=== PATIENT | female | born 1955 | race Caucasian/White ===

== ENCOUNTER 2024-02-09 09:00 | Outpatient (CLI) | payer MEDICARE ==
[2024-02-09 11:03] LABS: BASOPHILS % (AUTO) 0.3 % (0-1); EOSINOPHILS # (AUTO) 0.1 X10'3 (0-0.9); EOSINOPHILS % (AUTO) 1.5 % (0-6); LYMPHOCYTES # (AUTO) 1.4 X10'3 (1.1-4.8); LYMPHOCYTES % (AUTO) 18.5 % (21-51); MEAN CORPUSCULAR HGB CONC 33.2 g/dL (33.0-36.5); MEAN CORPUSCULAR VOLUME 90.2 FL (78-98); MEAN PLATELET VOLUME 7.6 FL (7.4-10.4); MONOCYTES # (AUTO) 0.4 X10'3 (0-0.9); MONOCYTES % (AUTO) 5.4 % (2-12); NEUTROPHILS # (AUTO) 5.5 X10'3 (1.8-7.7); NEUTROPHILS % (AUTO) 74.3 % (42-75); PRE OP HEMATOCRIT 38.1 % (35.0-45.0); PRE OP HEMOGLOBIN 12.6 g/dL (12.0-16.0); PRE OP PLATELET COUNT 299 X10'3 (140-440); PRE OP WHITE BLOOD COUNT 7.3 10'3 (4.8-10.8); RED BLOOD COUNT 4.22 X10'6 (4.20-5.60); RED CELL DISTRIBUTION WIDTH 14.2 % (11.5-14.5)
[2024-02-09 11:13] LABS: ALBUMIN 3.3 G/DL (3.4-5.0); ALBUMIN/GLOBULIN RATIO 0.8 (1.1-1.5); ALKALINE PHOSPHATASE 59 IU/L (46-116); BLOOD UREA NITROGEN 16 MG/DL (7-18); BUN/CREATININE RATIO 20.3 (10.0-20.0); CALCIUM 9.1 MG/DL (8.5-10.1); CHLORIDE 105 MMOL/L (99-107); CREATININE 0.79 MG/DL (0.40-0.90); PRE OP ALT 16 U/L (30-65); PRE OP ANION GAP 6 (8-16); PRE OP AST 12 U/L (10-37); PRE OP BILIRUB, TOTAL 0.3 MG/DL (0.0-1.0); PRE OP GLUCOSE 97 MG/DL (70-104); PRE OP POTASSIUM 3.8 MMOL/L (3.4-5.1); PRE OP SODIUM 141 MMOL/L (135-145); TOTAL CARBON DIOXIDE 30.4 MMOL/L (24-32); TOTAL PROTEIN 7.4 G/DL (6.4-8.2); eGFR 72 ML/MIN
[2024-02-09] MEDS ORDERED: CALC-723 PO (13:29)
[2024-02-09] MEDS ORDERED: VITAMIN D3 (13:29)
[2024-02-09] MEDS ORDERED: MONT-40 PO (13:29)
[2024-02-09] MEDS ORDERED: TAMO20TA4 PO (13:29)
[2024-02-09] MEDS ORDERED: CETI10CA19 PO (13:29)
[2024-02-09] MEDS ORDERED: PANT40TA54 PO (13:29)
[2024-02-09] MEDS ORDERED: FIBER GUMMIES (13:29)
[2024-02-09] MEDS ORDERED: ROSU40TA22 PO (13:29)
== END 2024-02-09 23:00 | disposition home or self-care (01) ==
LOC: LAB 09:00 → EDSTATUS 02-17 08:30
PROVIDERS: ATTEND Surgery
DX: K44.9 Diaphragmatic hernia without obstruction or gangrene (principal); I51.7 Cardiomegaly
CPT/HCPCS: 36415; 80053; 85025; 93005

== ENCOUNTER 2025-05-26 05:20 | Day surgery (SDC) | payer MEDICARE ==
[2025-05-19 11:25] LABS: MEAN PLATELET VOLUME 7.5 FL (7.4-10.4); RED CELL DISTRIBUTION WIDTH 15.0 % (11.5-14.5)
[2025-05-19 11:43] LABS: CREATININE 1.04 MG/DL (0.40-0.90); TOTAL CARBON DIOXIDE 29.8 MMOL/L (24-32); eGFR 52 ML/MIN
[2025-05-26] VITALS (18 sets, daily range): BP systolic 129–155; BP diastolic 72–84; PULSE 67–77; RESP 11–21; TEMP 98.3; O2SAT 94–100
[~2025-05-26] VITALS: Ht 157.5 cm; Wt 64.7 kg
[~2025-05-26 05:20] MED LIST: CALC-1205 PO; CETI10CA19 PO; CHOL500061 PO; FIBER GUMMIES PO; MAGN250C PO; MONT-40 PO; PANT40TA54 PO; ROSU40TA89 PO; TAMO20TA4 PO
[2025-05-26] MEDS: ceFAZolin 2gm/dext,iso 50mL 50 ML IV ONE (05:41)
[2025-05-26] MEDS: ringers solution, lacted 1,000 ML IV SCH (06:00)
[2025-05-26] MEDS ORDERED: LIDOcaine 1% (10mg/ml)w/preservative inj. 20ml MDV ONE (06:46)
[2025-05-26] MEDS ORDERED: BUPIVAcaine 2.5mg/ml inj 50ml vial (contains preservative) ONE (06:47)
[2025-05-26] MEDS ORDERED: fentaNYL /PF 50mcg/ml 5ml ampule ONE (07:20)
[2025-05-26] MEDS ORDERED: dexamethasone sod phosphate 4mg/ml inj. ONE (07:21)
[2025-05-26] MEDS ORDERED: albumin (Human) 5% 250ml 250 ML IV ONE (07:21)
[2025-05-26] MEDS ORDERED: acetaminophen 1,000mg/100ml IV 100 ML IV ONE (07:21)
[2025-05-26] MEDS ORDERED: ondansetron/PF 4mg/2ml inj ONE (07:21)
[2025-05-26] MEDS ORDERED: rocuronium 10mg/ml inj IV ONE ×3 (07:21→08:36)
[2025-05-26] MEDS ORDERED: propofol inj 20 ML IV ONE (07:21)
[2025-05-26] MEDS ORDERED: LIDOcaine 1%/PF 5ML 10 MG/ML VIAL ONE (07:21)
--- NOTE | 2025-05-26 07:41 | HISTORY AND PHYSICAL ---
History & Physical Providers to CC CC: ARBEN HALL MD ~ History of Present Illness Reason for Admit\Complaint: Hiatal hernia History of Present Illness This is an interval history and physical exam Ms. San is here today for elective repair of her type 1 paraesophageal hernia (sliding hiatal). She has known Bocanegra's esophagus and reflux symptoms She was seen in the office greater than 30 days ago. She denies any change in her past medical history (please see previous history and physical exam for all pertinent details) She is scheduled for robotic assisted, laparoscopic paraesophageal hernia repair with mesh Allergies: Coded Allergies: No Known Allergies (Unverified , 02/09/24) Home Medications Home Medications Active Reported Magnesium (Magnesium Citrate and Oxide) 250 Mg Capsule 1 Cap PO DAILY Vitamin D3 (Cholecalciferol (Vitamin D3)) 125 Mcg (5000 Unit) Tab.rapdis 1 Tab PO DAILY 30 Days Calcium 600 + Vit D3 Tablet (Calcium Carbonate/Vitamin D3) 600 Mg Calcium-10 Mcg (400 Unit) Tablet 2 Tab PO DAILY 30 Days [Fiber Gummies] 3 Unit PO DAILY Allergy Relief (Cetirizine HCl) 10 Mg Capsule 1 Cap PO DAILY 30 Days Rosuvastatin Calcium 40 Mg Tablet 1 Tab PO QPM Pantoprazole Sodium 40 Mg Tablet.dr 1 Tab PO QAM Montelukast Sodium 10 Mg Tablet 1 Tab PO HS Tamoxifen Citrate 20 Mg Tablet 1 Tab PO DAILY @ NOON Exam Vitals: Vital Signs Date Time Temp Pulse Resp B/P (MAP) Pulse Ox O2 Delivery O2 Flow Rate FiO2 05/26/25 05:36 16 99 Room Air 05/26/25 05:36 71 05/26/25 05:36 98.3 155/77 (103) General: 70-year-old female in no acute distress Chest: Lungs clear to auscultation bilaterally Cardiovascular: Regular rate and rhythm without murmur Abdomen: Soft and nondistended Problems: (1) Paraesophageal hernia Status: Chronic Assessment & Plan: Bocanegra's esophagus Intractable reflux symptoms The risks, benefits, and alternatives to a robotic assisted, laparoscopic paraesophageal hernia repair with mesh were discussed with the patient and her spouse. Risks include, but are not limited to, bleeding, infection, injury to intra-abdominal structures, hernia recurrence, chronic postoperative pain and the need for revision or additional surgery. Patient verbalized understanding and wishes to proceed with surgery. We will do so today as scheduled ARBEN HALL MD May 26, 2025 07:41
[2025-05-26] MEDS ORDERED: labetalol 20mg/4ml (5mg/ml) syringe IV ONE (08:12)
[2025-05-26] MEDS: BUPIVAcaine/PF 2.5 mg/ml (0.25%) 30ml vial IJ ONE (08:59)
[2025-05-26] MEDS ORDERED: ePHEDrine 50MG/ML INJ. ONE (09:27)
[2025-05-26] MEDS ORDERED: normal saline 1000ml 1,000 ML IV SCH (10:00)
[2025-05-26] MEDS ORDERED: potassium CL 20mEq in D5-1/2NS 1,000 ML IV SCH (10:00)
[2025-05-26] MEDS ORDERED: ondansetron/PF 4mg/2ml inj IV PRN ×2 (10:00→10:30)
[2025-05-26] MEDS ORDERED: morphine 4 MG/ML inj SYRINge IV PRN (10:30)
[2025-05-26] MEDS ORDERED: fentaNYL/PF 50MCG/1 ML 2ML syringe IV PRN ×2 (10:30)
[2025-05-26] MEDS ORDERED: ringers solution, lacted 1,000 ML IV SCH (10:30)
[2025-05-26] MEDS ORDERED: hydrALAZINE 20mg/ml inj. IV PRN (10:30)
[2025-05-26] MEDS ORDERED: labetalol 20mg/4ml (5mg/ml) syringe IV PRN (10:30)
[2025-05-26] MEDS: HYDROmorph/NS 0.2 mg/ml PCA 100 ML IV SCH (10:57)
--- NOTE | 2025-05-26 11:13 | RADIOLOGY REPORT ---
CHEST RADIOGRAPH Indication: POST OP Technique: Single frontal view of the chest was obtained Comparison: None FINDINGS: Lines and Tubes: None Lungs: No focal consolidation. Pleura: No effusion. No pneumothorax. Cardiomediastinal contours: Unremarkable Bones: No acute osseous abnormality. IMPRESSION: Air within the bilateral neck and right chest wall. Postsurgical in nature.
[2025-05-26] MEDS: oxyCODONE/APAP 5-325mg tablet PO PRN (13:46)
[2025-05-26] MEDS: PCA WASTE DOCUMENTATION 1 MG ML MC SCH (14:14)
--- NOTE | 2025-05-26 15:46 | OPERATIVE REPORT ---
Operative Report Providers to CC CC: JORGE HALL MD ~ Date of Procedure: May 26, 2025 Pre-Operative Diagnosis: Paraesophageal hernia Post-Operative Diagnosis SAME as PRE-Op Procedure Performed Robotic assisted, laparoscopic paraesophageal hernia repair with mesh Surgeon: Jorge Hall MD FACS Coiled Coil Inspector None Anesthesiologist: Wilton Andujar Type of Anesthesia: General Findings: [id number], type III paraesophageal hernia with a proximally 20% of the stomach above the hiatus Wound class I Complications None Prosthetics\Implants used: Phasix mesh Estimated Blood Loss: Minimal Specimen Removed: Hernia sac excised and discarded Description of Procedure: Patient was brought to the operating room and identified by the nursing staff and the attending physician. Patient was placed supine and general anesthesia was induced. Preoperative antibiotics were given. Cooley catheter was placed. The abdomen was prepped and draped in the standard sterile fashion. At [place], Veress needle technique was used through a stab incision to access and insufflate the abdomen. This was accomplished without incident. An optical, 12 mm trocar was used to gain access to the abdomen in the left upper quadrant under laparoscopic visualization. Additional 8.5 mm robotic trochars were placed under laparoscopic visualization in the left lateral upper abdomen, left epigastrium and right upper quadrant. Patient was placed in steep, reverse Trendelenburg position. The da Sweta robotic arm was docked to the patient and instruments guided into t he abdomen under laparoscopic visualization. The left lobe of the liver was lifted and the hiatus inspected. Fairly large hiatal defect was noted. Proximally 20% of the stomach as well as the GE junction were herniated well above the hiatus. An 18 inch, 0, V-Loc suture was used to sling the left lobe of the liver up to the anterior abdominal wall. With the stomach retracted towards the patient's left upper quadrant, dissection was initiated along the pars flaccida and the lesser sac was entered. The lesser omentum was divided up to the right jesse. There was not a replaced left hepatic artery. Dissection was carried in to the mediastinum. The mediastinal space was entered. Dissection was then carried posteriorly along the right jesse, taking care to leave peritoneum overlying the muscles. Once the posterior decussation was encountered, attention was then turned to the short gastric vessels. Stomach was retracted toward the patient's right and the short gastric vessels were placed on tension. The short gastric vessels were divided along the upper portion of the greater curvature, up to the phrenoesophageal ligament which was also then divided. The peritoneal reflection of the left jesse was opened and dissection carried up until the apex of the crura was reached. Dissection was carried up into the mediastinum, mobilizing the esophagus from the retrocardiac space and taking care not to injure the bilateral pleura. The entire hernia sac which was rather large in size, was mobilized out of the mediastinum and reduced into the abdomen. Excess sac was dissected at the level of the gastroesophageal fat pad and set aside. The retroesophageal space was developed. The GE junction was retracted anteriorly and the mediastinal dissection was carried out posterior to the esophagus. Dissection continued until at least 3 cm of intra-abdominal esophagus was obtained without any retraction on the stomach. With the stomach retracted anteriorly, adequate space and visualization was obtained to allow for the crural repair. Strips of bioabsorbable, Phasix mesh were used to reinforce the crural repair. A strip of mesh was placed over each crura and used for reapproximation without tension. Attention was then turned to the gastropexy. Fundus was anchored to the upper left portion of the hiatus with full-thickness crural sutures. The suture was then run along the greater curvature creating a gastropexy to the anterior abdominal wall. Care was taken to stay medial to the phrenic nerve and vascular bundle. About a fourth of the gastric fundus was anchored to the anterior abdom inal wall. Attention was then turned to the modified Hill procedure/augmentation stitch. The angle of His was then recreated with a running, 2/0, absorbable, V-Loc suture. This was run between the fundus and the lateral border of the intra-abdominal esophagus. This suture was run up to the level of the left jesse. Gastropexy was then completed by running the midportion of the gastric fundus towards the initial gastropexy suture and anchoring the 2 together. [place] and sutures were retrieved. The da Sweta robotic arm was undocked from the patient. The 12 mm port was removed and the fascial defect closed percutaneously with 0 Vicryl suture. Remaining ports were removed and the abdomen was allowed to deflate. Skin was closed at all sites with 4-0 Monocryl sutures and dressed with Dermabond. Patient was extubated and transferred to the postanesthesia care unit in stable condition. Counts repoted as correct: Yes JORGE HALL MD May 26, 2025 15:46
--- NOTE | 2025-05-26 15:50 | DISCHARGE SUMMARY ---
Discharge Summary Providers to CC CC: JORGE HALL MD ~ Discharge Summary Admission Diagnosis: Paraesophageal hernia Hospital Course DATE OF ADMISSION: May 26, 2025 DATE OF DISCHARGE: May 26, 2025 Discharge Diagnosis\Comment: Type III paraesophageal hernia Operations\Procedures: Robotic assisted, laparoscopic paraesophageal hernia repair with mesh Consultants: Jorge Hall MD FACS Complications: None Condition on DC: Stable New Medications: Oxycodone Hcl/Acetaminophen 5/325 MG* (Percocet 5/325 MG*) 5 Mg/325 Mg Tablet 1 TAB PO Q4H PRN for moderate or severe pain 4-10 for 5 Days, #30 TAB Continued Medications: Calcium Carbonate/Vitamin D3 (Calcium 600 + Vit D3 Tablet) 600 Mg Calcium-10 Mcg (400 Unit) Tablet 2 TAB PO DAILY for 30 Days, #60 TAB 0 Refills Cetirizine HCl (Allergy Relief) 10 Mg Capsule 1 CAP PO DAILY for allergy symptoms for 30 Days, #30 CAP 0 Refills Cholecalciferol (Vitamin D3) (Vitamin D3) 125 Mcg (5000 Unit) Tab.rapdis 1 TAB PO DAILY for 30 Days, #30 TAB 0 Refills [Fiber Gummies] () 3 UNIT PO DAILY Magnesium Citrate and Oxide (Magnesium) 250 Mg Capsule 1 CAP PO DAILY Montelukast Sodium (Montelukast Sodium) 10 Mg Tablet 1 TAB PO HS Rosuvastatin Calcium (Rosuvastatin Calcium) 40 Mg Tablet 1 TAB PO QPM Tamoxifen Citrate (Tamoxifen Citrate) 20 Mg Tablet 1 TAB PO DAILY @ NOON Discontinued Medications: Pantoprazole Sodium (Pantoprazole Sodium) 40 Mg Tablet.dr 1 TAB PO QAM Discharge Summary: Patient was initially planned to be admitted for observation overnight, however, patient had minimal pain and no dysphagia in the recovery room and was deemed safe for discharge home after chest x-ray was reviewed. *Problems/Diagnosis: (1) Paraesophageal hernia Status: Chronic Total Time Spent on D/C: Up to 30 Minutes JORGE HALL MD May 26, 2025 15:49
[2025-05-27] MEDS ORDERED: enoxaparin 40mg/0.4ml syringe SQ SCH (08:00)
== END 2025-05-26 13:52 | disposition home or self-care (01) ==
LOC: PAS 05:20 → PAS IN 10:05 → UNDOADMOB 10:05 → PAS 13:52
PROVIDERS: ATTEND Surgery
DX: K44.9 Diaphragmatic hernia without obstruction or gangrene (principal); E78.5 Hyperlipidemia, unspecified; N18.30 Chronic kidney disease, stage 3 unspecified; K21.9 Gastro-esophageal reflux disease without esophagitis; Z79.899 Other long term (current) drug therapy; Z90.710 Acquired absence of both cervix and uterus; Z98.51 Tubal ligation status; Z98.890 Other specified postprocedural states
CPT/HCPCS: 36415; 43282; 71045; 80053; 82948; 85025; A4615; A4618; C1781; J0131; J1100; J1171; J2270; J2405; J2704; J3010; J3490; J7030; J7120; P9045; Z7506; Z7508; Z7512; Z7610